=== PATIENT | female | born 1955 | race Caucasian/White ===

== ENCOUNTER 2023-06-11 12:59 | Emergency (ER) | payer MEDICARE, BC, SELFPAY ==
[2023-06-11 13:05] VITALS: BP 103/63; PULSE 65; RESP 18; TEMP 37.6; O2SAT 97; BMI 24.9
--- NOTE | 2023-06-11 13:22 | ED_ITS ---
HPI - General Adult General Chief complaint: Rib Pain Stated complaint: Fell, L rib pain Time Seen by Provider: 06/11/23 13:16 History of Present Illness HPI narrative: Pt was hauling brush outside when she fell and hit her left shoulder and felt something happen in the left side of her ribs. Has pain underneath breastbone area 67-year-old woman presenting to the emergency department with concern of left side rib pain. Has been doing some outside yardwork and has been hauling brush when she fell on the left side and has had the pain in the ribs since. There is some pleuritic nature to her pain; hurts to palpate the area. No abdominal pain otherwise. No neck or back pain. Related Data Home Medications Medication Instructions Recorded Confirmed bupropion HCl 100 mg tablet,12 hr 100 mg PO DAILY 06/11/23 06/11/23 sustained-release bupropion HCl 300 mg 24 hr tablet, 300 mg PO DAILY 06/11/23 06/11/23 extended release fluoxetine 40 mg capsule 40 mg PO DAILY 06/11/23 06/11/23 Allergies Allergy/AdvReac Type Severity Reaction Status Date / Time No Known Drug Allergies Allergy Verified 06/11/23 13:09 Review of Systems Status of ROS: Reports: 6 or more systems reviewed and unremarkable except as noted in History and below Exam Narrative: Exam Narrative: Pleasant. Appears uncomfortable with transitions. Not so much with breathing until deep inspiratory effort. breath sounds throughout. moves extremities without difficulty though some abduction of the left arm causes discomfort. I don't see evidence of trauma at chest wall, though there is pain to palpation in the anterolateral lower left ribs. Abdomen is soft and nontender. Neck supple nontender. Back nontender. Head atraumatic. Const: Vital Signs, click to edit/add: Vital Signs - 24 hr 06/11/23 13:05 Temperature 99.7 F H Pulse Rate [Right Pulse Oximeter] 65 Respiratory Rate 18 Blood Pressure [Ri ght Upper Arm] 103/63 Pulse Oximetry 97 Oxygen Delivery Me thod Room Air Documenting provider has reviewed patient's vital signs: yes Course Vital Signs Vital signs: Initial Vital Signs Temperature 99.7 F H 06/11/23 13:05 Temperature Source Temporal Artery Scan 06/11/23 13:05 Pulse Rate 65 06/11/23 13:05 Pulse Rhythm Regular 06/11/23 13:05 Respiratory Rate 18 06/11/23 13:05 Blood Pressure 103/63 06/11/23 13:05 Blood Pressure Mean 76 06/11/23 13:05 Pulse Oximetry 97 06/11/23 13:05 Oxygen Delivery Method Room Air 06/11/23 13:05 Vital Signs Temperature 99.7 F H 06/11/23 13:05 Pulse Rate 65 06/11/23 13:05 Respiratory Rate 18 06/11/23 13:05 Blood Pressure 103/63 06/11/23 13:05 Pulse Oximetry 97 06/11/23 13:05 Oxygen Delivery Method Room Air 06/11/23 13:05 Temperature 99.7 F H 06/11/23 13:05 Pulse Rate 65 06/11/23 13:05 Respiratory Rate 18 06/11/23 13:05 Blood Pressure 103/63 06/11/23 13:05 Pulse Oximetry 97 06/11/23 13:05 Oxygen Delivery Method Room Air 06/11/23 13:05 Medications Administered Medications: Discontinued Medications Generic Name Dose Route Start Last Admin Trade Name Alonzo PRN Reason Stop Dose Admin Ibuprofen 600 mg 06/11/23 13:30 06/11/23 13:32 Ibuprofen 200 Mg Tablet PO 06/11/23 13:31 600 mg ONCE ONE Administration Lidocaine 1 patch 06/11/23 14:18 06/11/23 14:21 Lidocaine 5% Patch TRANSDERMA 06/11/23 14:19 1 patch ONCE ONE Administration Protocol Medical Decision Making MDM Narrative Medical decision making narrative: I would suspect rib injury here. Would evaluate also for pneumothorax. No apparent abdominal involvement or significant extremity injury. Given Ibuprofen. Chest and rib views reviewed by me appear to have cortical rib irregularity in area of maximal pain at the left lower anteroom-lat ribs. No pneumothorax. Unable to confirm with POC ultrasound. Radiology overread noted to be unremarkable. I did return to place MICHAEL wrap which did offer some relief. Rib binder otherwise was not available. I do believe fracture likely explanation for pain. Also placed lidocaine patch as trial. See patient discharge plan for further discussion. Discharge Plan Discharge Clinical Impression: Fracture of rib, Chest wall pain Patient Disposition: Home, Self-Care Condition: Improved Additional Instructions: As a said it really looks like you have a rib fracture there and the exam correlates with x-ray findings. Can wear Michael wraps for chest compression to alleviate discomfort. If you are using some sort of chest binder, be sure to take a few deep breaths few times daily to expand your lungs. Center this lidocaine patch over the area of maximal pain. If this is helpful you can purchase more of these [id number]. Otherwise ibuprofen or acetaminophen. In place of ibuprofen could take up to 500 mg of naproxen 2 times daily. Restrictions on activities really are just based on what causes too much pain. Prescriptions: No Action fluoxetine 40 mg capsule 40 mg PO DAILY bupropion HCl 100 mg tablet sustained-release 12 hr 100 mg PO DAILY bupropion HCl 300 mg tablet extended release 24 hr 300 mg PO DAILY Follow Up/Referrals: Provider,Not a Local [Primary Care Provider] - Stand Alone Forms: [employer] Info Instructions
--- NOTE | 2023-06-11 13:28 | XR_ITS ---
Patient: MAURO BLOUNT Facility:?[facility] Patient ID:?[id number] Site Patient ID:?[id number]. Site :?[id number] Study:?XRay-Chest Left 1V CHEST + LT RIBS 3V-06/11/2023 1:54:41 PM Ordering Physician:ANTONINA Final Report: INDICATION: Injury and pain. TECHNIQUE: Chest and left ribs 2 views. COMPARISON: None. FINDINGS: Cardiovascular and mediastinum: Heart size and vasculature are normal in caliber and appearance. Mediastinum is within normal limits. Lungs and pleural spaces: Lungs are clear. No sign of infiltrate or mass. Nipple shadow noted to project over the lower right lung. No sign of pleural effusion. No pneumothorax. Bones and soft tissues: Detailed oblique images of the left ribs demonstrate no fractures or bone lesions. IMPRESSION: Unremarkable chest and left ribs. Dictated by Zachary Florence MD @ 06/11/2023 2:06:11 PM Signed by:?Zachary Florence MD @06/11/2023 2:06:11 PM (Electronic Signature)
[2023-06-11] MEDS: IBUPROFEN 200 MG TABLET 600 MG PO (13:32)
[2023-06-11] MEDS: LIDOCAINE 5% PATCH 1 PATCH TRANSDERMA (14:21)
== END 2023-06-11 14:27 | disposition home or self-care (01) ==
PROVIDERS: Emergency Provider Family Medicine
DX: R07.89 Other chest pain (principal); S22.32XA Fracture of one rib, left side, initial encounter for closed fracture; W19.XXXA Unspecified fall, initial encounter
CPT/HCPCS: 71101; 99283; 99284; A9270